=== PATIENT | male | born 1965 | race Two or more races ===

== ENCOUNTER 2023-06-18 11:05 | Emergency (ER) | payer OTHER ==
[~2023-06-18] VITALS: Ht 175.3 cm; Wt 117.9 kg
--- NOTE | 2023-06-18 11:18 | NUR ---
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 Fell ON ANKLE AND NOW HAS DEFORIMTY. PT ENDORSES PAIN 9/10 TOLORATING WELL. HYPERTENSIVE ON SCENE VITAL SIGNS STABLE. CONNCTED TO BED SIDE MONITOR. PLACED IN BED BED LCOKED SIDE RAILS UP
[2023-06-18] MEDS ORDERED: IBUPROFEN 400 MG TABLET PO ONE (11:30)
[2023-06-18] MEDS ORDERED: IBUPROFEN 400 MG TABLET ONE (11:48)
--- NOTE | 2023-06-18 12:31 | NUR ---
Boot applied on affected area. Crutches and gait training done by EMT- Beth
[2023-06-18 12:44] VITALS: BP 156/71; TEMP 98.2; O2SAT 100
--- NOTE | 2023-06-18 12:44 | NUR ---
PT GIVEN DISCHARGE INSTRUCTIONS AND PAIN MEDS. SIGNED DISCHARGED PAPER WORK AND UNDERSTOOD INSTRUCTION,
== END 2023-06-18 12:48 | disposition home or self-care (01) ==
LOC: ER 11:12
DX: S82.434A Nondisplaced oblique fracture of shaft of right fibula, initial encounter for closed fracture (principal); E78.00 Pure hypercholesterolemia, unspecified; I10 Essential (primary) hypertension; E11.9 Type 2 diabetes mellitus without complications; W01.0XXA Fall on same level from slipping, tripping and stumbling without subsequent striking against object, initial encounter; Y93.89 Activity, other specified; Y92.89 Other specified places as the place of occurrence of the external cause; Y99.0 Civilian activity done for income or pay
CPT/HCPCS: 73610-TC